=== PATIENT | female | born 1985 | race Caucasian/White ===

== ENCOUNTER 2017-10-23 21:40 | Emergency (ER) | payer SELFPAY ==
[~2017-10-23] VITALS: Ht 172.7 cm; Wt 106.6 kg
[2017-10-23 21:45] VITALS: BP_SYST 136
== END 2017-10-24 01:20 | disposition left against medical advice (07) ==
LOC: SED 21:40
DX: R07.89 Other chest pain (principal); R11.2 Nausea with vomiting, unspecified; Z53.21 Procedure and treatment not carried out due to patient leaving prior to being seen by health care provider
CPT/HCPCS: 93005; 99281